=== PATIENT | female | born 1960 | race Caucasian/White ===

== ENCOUNTER 2017-04-13 11:27 | Emergency (ER) | payer OTHER ==
[~2017-04-13] VITALS: Ht 157.5 cm; Wt 71.5 kg
[2017-04-13 11:30] VITALS: Ht 157.5 cm; Wt 71.5 kg
[2017-04-13] MEDS ORDERED: morphine 4 MG/ML VIAL IV STA (12:30)
[2017-04-13] MEDS ORDERED: DIPHENHYDRAMINE 50 MG INJ IV STA (12:30)
[2017-04-13] MEDS ORDERED: PROCHLORPERAZINE 10 MG INJ IV STA (12:30)
--- NOTE | 2017-04-13 13:07 | RADRPT ---
PROCEDURE: CT Brain without contrast. CLINICAL INDICATION: Headache and vomiting. TECHNIQUE: A CT of the brain without contrast was performed utilizing axial sections from the skul l base through the vertex. The patient was scanned without intravenous contrast enhancement. Sagitta l and coronal reformatted images were obtained using the data from the axial images. Total exam DLP is 720.23 mGy-cm. CTDIvol is 44.46 mGy. One or more of the following dose reduction techniques we re used: Automated exposure control, adjustment of the mA and/or kV according to patient size, use o f iterative reconstruction technique. DICOM images are available. COMPARISON: None available FINDINGS: There is normal conway-white matter differentiation. The ventricles and cisterns are normal. There is no intracranial hemorrhage or space-occupying lesion. There is no skull fracture or lytic lesion. IMPRESSION: 1. Normal noncontrast CT scan of the brain. 2. No intracranial hemorrhage. RPTAT: QQ .Satnam Briceno MD, MD Date Time Electronically viewed and signed by .Satnam Briceno MD, on 04/13/2017 13:07 .R/
[2017-04-13 14:43] VITALS: BP 102/65; PULSE 79; RESP 16; TEMP 98.1
[2017-04-13] MEDS ORDERED: AMLO-218 PO (14:50)
[2017-04-13] MEDS ORDERED: IBUP800T25 PO (14:50)
[2017-04-13] MEDS ORDERED: HYDR-902 PO (14:50)
--- NOTE | 2017-04-13 14:57 | ERD ---
ER Documentation Chief Complaint Chief Complaint ROWLAND VOMITING STARTED THIS AM HPI This is a 56-year-old female with a history of migraines who complains of migraine symptoms but a different location of headache. Headaches usually on the right retro-orbital region however her headache onset today that was gradual is located in the frontal entire head. Her headache is throbbing with photophobia, phonophobia and worse with position change. She says is exactly like prior migraines she is stronger and in a more broad distributional. She does have nausea vomiting 1. No focal neurological complaints no fever no speech changes ROS All systems reviewed and are negative except as per history of present illness. Medications Home Meds Active Scripts Ibuprofen* (Motrin*) 800 Mg Tab, 800 MG PO Q6H Y for PAIN AND OR ELEVATED TEMP, #30 TAB Prov:COLEEN GOMEZ. DO 04/13/17 Amlodipine Besylate* (Norvasc*) 10 Mg Tablet, 10 MG PO DAILY, #20 TAB Prov:COLEEN GOMEZ DO 04/13/17 Hydrocodone/Acetaminophen (Kyburz 10-325 Tablet) 1 Each Tablet, 1 TAB PO Q6H Y for PAIN, #20 TAB Prov:MAKI GOMEZSTOLOS A. DO 04/13/17 Allergies Allergies: Coded Allergies: No Known Allergy (Unverified , 04/13/17) PMhx/Soc Medical and Surgical Hx: pt denies Medical Hx, pt denies Surgical Hx Hx Alcohol Use: No Hx Substance Use: No Hx Tobacco Use: No Smoking Status: Never smoker FmHx Family History: No coronary disease Physical Exam Vitals Vital Signs Date Time Temp Pulse Resp B/P Pulse Ox O2 Delivery O2 Flow Rate FiO2 04/13/17 14:43 98.1 79 16 102/65 99 Room Air 04/13/17 11:30 97.9 75 18 171/89 99 Physical Exam Const: Well-developed, well-nourished Head: Atraumatic, normocephalic Eyes: Normal Conjunctiva, PERRLA, EOMI, normal sclera, no nystagmus ENT: Normal External Ears, Nose and Mouth, moist mucus membranes. Neck: Full range of motion. No meningismus, no lymphadenopathy. Resp: Clear to auscultation bilaterally, no wheezing, rhonchi, rales Cardio: Regular rate and rhythm, no murmurs, S1 S2 present Abd: Soft, non tender x 4, non distended. Normal bowel sounds, no guarding or rebound, no pulsitile abdominal masses or bruits Skin: No petechiae or rashes, no ecchymosis , no maculopapular rash Back: No midline or flank tenderness Ext: No cyanosis, or edema, FROM x 4, normal inspection, neurovascularly intact x 4 Neur: Awake and alert, STR 5/5 x 4, sensation intact x 4, no focal findings, cerebellum intact Psych: Normal Mood and Affect Results 24 hrs Current Medications Medications (Trade) Dose Ordered Sig/Sammie Route PRN Reason Start Time Stop Time Status Last Admin Dose Admin Prochlorperazine (Compazine Inj) 10 mg ONCE STAT IV 04/13/17 12:30 04/13/17 12:33 DC 04/13/17 14:00 Morphine Sulfate (morphine) 8 mg ONCE STAT IV 04/13/17 12:30 04/13/17 12:33 DC 04/13/17 12:48 Diphenhydramine HCl (Benadryl) 25 mg ONCE STAT IV 04/13/17 12:30 04/13/17 12:33 DC 04/13/17 12:48 Procedures/MDM PROCEDURE: CT Brain without contrast. CLINICAL INDICATION: Headache and vomiting. TECHNIQUE: A CT of the brain without contrast was performed utilizing axial sections from the skull base through the vertex. The patient was scanned without intravenous contrast enhancement. Sagittal and coronal reformatted images were obtained using the data from the axial images. Total exam DLP is 720.23 mGy-cm. CTDIvol is 44.46 mGy. One or more of the following dose reduction techniques were used: Automated exposure control, adjustment of the mA and/or kV according to patient size, use of iterative reconstruction technique. DICOM images are available. COMPARISON: None available FINDINGS: There is normal conway-white matter differentiation. The ventricles and cisterns are normal. There is no intracranial hemorrhage or space-occupying lesion. There is no skull fracture or lytic lesion. IMPRESSION: 1. Normal noncontrast CT scan of the brain. 2. No intracranial hemorrhage. RPTAT: QQ .Satnam Briceno MD, Date Time Electronically viewed and signed by .Satnam Briceno MD, on 04/13/2017 13:07 .R/ CC: COLEEN GOMEZ DO Patient's headache is 0 out of 10. The patient's headache is clearly a migraine type of pattern however she does have a different location of headache is the same type of pain symptoms and quality. CT head is negative for any acute pathology. We will discharge home with Motrin and Kyburz she does take Norvasc as needed Departure Diagnosis: Primary Impression: Migraine Migraine type: unspecified Status migrainosus presence: without status migrainosus Intractability: not intractable Qualified Code: G43.909 - Migraine without status migrainosus, not intractable, unspecified migraine type Condition: Stable Patient Instructions: Headache, Migraine (Classical) COLEEN GOMEZ DO Apr 13, 2017 14:57
== END 2017-04-13 15:00 | disposition home or self-care (01) ==
LOC: FTE 11:27
DX: G43.909 Migraine, unspecified, not intractable, without status migrainosus (principal)
CPT/HCPCS: 70450; 96374; 96375; J0780; J1200; J2270; Z7502